=== PATIENT | male | born 1965 | race African-American/Black ===

== ENCOUNTER 2020-02-10 20:26 | Emergency (ER) | payer MEDICAID, MEDICARE ==
[~2020-02-10] VITALS: Ht 188 cm; Wt 118.0 kg
[2020-02-10 23:00] LABS: BASOPHILS % 0.6 % (0.0-2.0); EOSINOPHILS % 1.8 % (0.0-5.0); HEMATOCRIT. 38.3 % (42.0-52.0); HEMOGLOBIN. 13.2 g/dL (14.0-18.0); LYMPHOCYTES % 45.8 % (20.0-50.0); MEAN CORPUSCULAR HEMOGLOBIN 37.8 pg (28.0-32.0); MEAN CORPUSCULAR VOLUME 109.3 fL (80.0-94.0); MEAN PLATELET VOLUME 8.1 fl (7.4-10.4); MONOCYTES % 13.1 % (2.0-8.0); NEUTROPHILS % 38.7 % (40.0-76.0); PLATELET 215 x1000/uL (130-400); RED CELL DISTRIBUTION WIDTH 20.4 % (11.6-14.6)
[2020-02-10 23:07] LABS: CHLORIDE 106 mEq/L (98-107)
[2020-02-10] MEDS ORDERED: POTASSIUM CHLORIDE 20MEQ TABLET SR PO ONE (23:30)
[2020-02-11 01:29] VITALS: BP 136/91
== END 2020-02-11 02:26 | disposition home or self-care (01) ==
LOC: ER 20:26
DX: R07.89 Other chest pain (principal); F10.129 Alcohol abuse with intoxication, unspecified; Y90.0 Blood alcohol level of less than 20 mg/100 ml; I10 Essential (primary) hypertension
CPT/HCPCS: 36415; 71045; 80053; 83880; 84484; 85025; 93005; 99285